=== PATIENT | male | born 1980 | race Caucasian/White ===

== ENCOUNTER 2016-06-21 02:17 | Emergency (ER) | payer OTHER ==
--- NOTE | ~2016-06-21 | CR71 ---
[facility] A Service of [facility] & [facility] RADIOLOGY TEXT RESULTS PATIENT: RILEY ALLEN LOCATION: [facility] : 80 UNIT #: [id number] AGE: [address]: Marco Paz MD SEX: M ORDER DR: [id number] [facility] [address] [place], [place] [address] [id number] MR#: [id number] Acc #: [id number] NAME: RILEY ALLEN : 1980 SEX: M STUDY DATE/TIME: 06/21/2016 0:58 UNIT: [facility] ROOM: STUDY DESCRIPTION: CR Chest Single View Attending Physician: Marco Paz M.D. Ordering Physician: Carol Last M.D. Primary Care Physician: Primary Care Physician No MEDICAL IMAGING REPORT This report is preliminary unless electronic signature is present EXAM AP portable chest date 06/21/2016 at 00:58 HISTORY Left side chest pain and palpitations today. History of smoking. COMPARISON None. FINDINGS A single AP portable view of the chest shows both lungs to be clear. The heart is normal in size. The mediastinal contour is normal. No significant bone abnormalities are seen. IMPRESSION Normal portable chest. Dictated by... Cayla Allen M.D. THIS IS AN ELECTRONICALLY VERIFIED REPORT Cayla Allen M.D. at 06/21/2016 9:58 PM [facility]/jose TD: 06/21/2016 02:14 JOB #: [id number] MEDICAL IMAGING REPORT Page 1 of 1 COPY
--- NOTE | ~2016-06-21 | EKG ---
PATIENT: RILEY ALLEN UNIT #: [id number] Ventricular Rate: 86 BPM Atrial Rate: 86 BPM P-R Interval: 136 ms QRS Duration: 100 ms Q-T Interval: 406 ms QTC Calculation(Bezet): 485 ms P Alpha: 66 degrees Calculated R Alpha: 52 degrees Calculated T Alpha: 70 degrees Diagnosis Line: Normal sinus rhythm Diagnosis Line: Prolonged QT Diagnosis Line: Abnormal ECG Diagnosis Line: No previous ECGs available Diagnosis Line: Confirmed by MEGAN DUKE MD ([id number]) on Diagnosis Line: 06/21/2016 4:36:53 PM INTERPRETING MD: LEILANI GALLOWAY
[2016-06-21 01:10] LABS: POC - CKMB 1.5 ng/mL (0.0-7.9); POC - TROPONIN <0.05 ng/mL (<=0.05)
[2016-06-21 01:26] LABS: BASOPHIL% 0.5 % (0-2.5); EOSINOPHIL# 0.3 X10e3 (0-0.7); EOSINOPHIL% 4.3 % (0.0-7.0); HEMOGLOBIN 14.6 gm/dL (13.0-16.0); LYMPHOCYTE# 2.3 X10e3 (1.0-3.5); LYMPHOCYTE% 33.5 % (17.0-45.0); MEAN CELL VOLUME 84.8 FL (83-96); MEAN CORPUSCULAR HEMOGLOBIN 28.3 PG (28-34); MEAN CORPUSCULAR HGB CONC 33.3 g/dL (30-36); MEAN PLATELET VOLUME 7.5 FL (6.5-11.5); MONOCYTE# 0.6 X10e3 (0-1.0); MONOCYTE% 8.2 % (3.0-12.0); NEUTROPHIL# 3.6 X10e3 (1.5-7.1); NEUTROPHIL% 53.5 % (40-75); PLATELET COUNT 269 X10e3 (140-420); RED BLOOD COUNT 5.18 X10e (3.90-5.60); WHITE BLOOD COUNT 6.8 X10e3 (4.0-10.5)
[2016-06-21 01:30] LABS: DIFF IND NO
[2016-06-21 01:45] LABS: BLOOD UREA NITROGEN 17 mg/dL (9-23); BUN/CREATININE RATIO 18.88; CALCIUM SERUM 8.9 mg/dL (8.4-10.2); CARBON DIOXIDE 27 mmol/L (22-31); CHLORIDE 101 mmol/L (100-111); CREATININE SERUM 0.9 mg/dL (0.6-1.4); GLOM FILT RATE Estimated 109.5 mL/min (>60); GLUCOSE FASTING 154 mg/dL (70-110); SODIUM 137 mmol/L (135-145)
[2016-06-21 01:47] LABS: ALCOHOL BLOOD <5 mg/dL (0); POTASSIUM 2.9 mmol/L (3.5-5.1)
[2016-06-21 03:52] LABS: AMPHETAMINE POS (NEG); BARBITURATES NEG (NEG); BENZODIAZEPINES NEG (NEG); COCAINE NEG (NEG); MARIJUANA NEG (NEG); OPIATES NEG (NEG); TRICYCLIC ANTIDEPRESSANTS NEG (NEG); U METHADONE NEG (NEG)
== END 2016-06-21 07:29 | disposition home or self-care (01) ==
LOC: CED 02:17
PROVIDERS: Student in an Organized Health Care Education/Training Program
DX: E87.6 Hypokalemia (principal); F15.10 Other stimulant abuse, uncomplicated; F41.9 Anxiety disorder, unspecified; F17.200 Nicotine dependence, unspecified, uncomplicated
CPT/HCPCS: 36415; 71010; 80048; 80307; 82553; 84484; 85025; 93005; 96361; 96374; 99284; G0480; J2060

== ENCOUNTER 2016-09-06 18:45 | Inpatient (IN) | payer OTHER ==
--- NOTE | ~2016-09-06 | PN ---
Unit #: [id number] #: [id number] Patient: RILEY ALLEN [id number] [facility] [address] [place] [address] [id number] I MR#: [id number] NAME: RILEY ALLEN ROOM: 16 Age: 36 Sex: M Admission Date: 09/06/2016 : 1980 Attending Physician: Quinton Gilmore M.D. Admitting Physician: Quinton Gilmore M.D. Primary Care Physician: Primary Care Physician Jenny CHAHAL NOTES DATE OF SERVICE: 09/08/2016 DISCUSSION Mr. Santos is a 36-year-old male. The patient seen on 09/08/2016. The patient interviewed, chart reviewed, and obtained information from nursing staff. The patient compliant and cooperative. Reports feeling better. Denied any hallucination, but somewhat guarded, withdrawn, and isolative. REVIEW OF SYSTEMS Complete review of systems unremarkable. MENTAL STATUS EXAMINATION General appearance, the patient dressed casually. Attention span and concentration, fair. Oriented in time, place, and person. Mood and affect, labile. Speech, monotone. Thought process, concrete. The patient denied any thoughts of harming self or others, but somewhat guarded. Recent and remote memory, poor. Insight and judgment, poor. 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 ASSESSMENT AND PLAN Advised to continue with current medication and therapeutic protocol. If needed, consider further adjustment of medication. Dictated by... Jose Ortiz/naida TD: 09/08/2016 17:04 JOB #: [id number] Unit #: [id number] #: [id number] Patient: RILEY ALLEN DUSTY PROGRESS NOTES Page 1 of 1 X Quinton Gilmore MD PROGRESS NOTE
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
--- NOTE | ~2016-09-06 | PN ---
Unit #: [id number] #: [id number] Patient: TOM GONZALEZ [id number] [facility] [address] [place] [address] [id number] I MR#: [id number] NAME: TOM GONZALEZ ROOM: 16 Age: 36 Sex: M Admission Date: 09/06/2016 : 1980 Attending Physician: Quinton Gilmore M.D. Admitting Physician: Quinton Gilmore M.D. Primary Care Physician: Primary Care Physician Jenny CHAHAL NOTES DATE 09/07/2016 DISCUSSION Tom Gonzalez is a 36-year-old male, seen on 09/07/2016. The patient interviewed, chart reviewed, and obtained information from the nursing staff. The patient was compliant and cooperative. Mood sad and dysphoric, flat, withdrawn, disorganized behavior, disorganized thought process, guarded, paranoid, delusions. REVIEW OF SYSTEMS Complete review of systems unremarkable. MENTAL STATUS EXAMINATION General appearance: Patient dressed casually. Attention span and concentration, poor. Orientation in self and place. Mood and affect, labile. Speech, rambling. Thought process, circumstantial, guarded, paranoid, delusional. Recent and remote memory, poor. Insight and judgment, poor. DIAGNOSIS Psychosis, NOS. ASSESSMENT/PLAN Advised to continue with the current medication and therapeutic protocol, and advised to add Cogentin 1 mg twice daily, if needed we will make further adjustment of medication. The patient's labs showed total bilirubin 2.9. CBC unremarkable. Urine drug screen positive for amphetamine. Dictated by... Jose Ortiz/any TD: 09/08/2016 10:36 JOB #: [id number] Unit #: [id number] #: [id number] Patient: TOM GONZALEZ DUSTY PROGRESS NOTES Page 1 of 1 X Quinton Gilmore MD PROGRESS NOTE
--- NOTE | ~2016-09-06 | DS ---
Unit #: [id number] #: [id number] Patient: RILEY ALLEN [id number] [facility] [address] [place] [address] [id number] I MR#: [id number] NAME: RILEY ALLEN ROOM: [facility] Age: 36 Sex: M Admission Date: 09/06/2016 : 1980 Discharge Date: 09/09/2016 Attending Physician: Quinton Gilmore M.D. Primary Care Physician: Primary Care Physician No DISCHARGE SUMMARY REASON FOR ADMISSION Psychosis. DIAGNOSTIC STUDIES LABORATORY RESULTS: Urine drug screen remarkable for amphetamine. HOSPITAL COURSE The patient was admitted to inpatient unit on 09/07/2016 and discharged on 09/09/2016. The patient was treated with group therapy, individual therapy, medication management. The patient was responsive to treatment and showed improvement. The patient's Haldol was discontinued as the patient developed EPS symptom, responsive to Benadryl. Subsequently, the patient was discharged with a plan to follow up in outpatient program. DISCHARGE MEDICATIONS None. DISCHARGE DIAGNOSES Psychiatric: 1. Psychosis, not otherwise specified, F29.0. 2. Rule out schizophrenia, chronic, paranoid type, F20.0. 3. Rule out substance abuse, psychosis, F19.959. 4. Amphetamine use disorder, severe, F15.20. Secondary diagnosis: Deferred. Medical diagnosis: None. Stressors: Psychosocial stressors. DISCHARGE INSTRUCTIONS The patient to follow up in outpatient clinic as per psychologist social. CONDITION ON DISCHARGE The patient was pleasant and cooperative. Denied any thoughts of harming self or others. PROGNOSIS Guarded. DIET AND ACTIVITY As tolerated. Unit #: [id number] #: [id number] Patient: RILEY ALLEN Dictated by... Jose Ortiz/naida TD: 09/09/2016 19:45 JOB #: [id number] DISCHARGE SUMMARY Page 1 of 1 X Quinton Gilmore MD X DISCHARGE SUMMARY
--- NOTE | ~2016-09-06 | HP ---
Unit #: [id number] #: [id number] Patient: TOM ALLEN [id number] [place] [address] [id number] I MR#: [id number] NAME: TOM ALLEN ROOM: 16 Age: 36 Sex: M Admission Date: 09/06/2016 : 1980 Attending Physician: Quinton Gilmore M.D. Admitting Physician: Quinton Gilmore M.D. Primary Care Physician: Primary Care Physician No HISTORY AND PHYSICAL HISTORY OF PRESENT ILLNESS Tom is a 36-year-old male admitted on 09/06/[address] [place] [address] for psychosis. PAST MEDICAL HISTORY None. PAST SURGICAL HISTORY Pelvic fracture requiring surgical repair. ALLERGIES None. SOCIAL HISTORY Smokes 1 pack of cigarettes daily. Denies alcohol use. Does report a history of Suboxone and methamphetamine use. He is currently single and living with his mother. FAMILY HISTORY Noncontributory. REVIEW OF SYSTEMS CONSTITUTIONAL: No fever or chills. HEENT: Denies any sore throat, ear pain or runny nose. CARDIOVASCULAR: Denies chest pain, irregular heart rhythm or palpitations. CHEST: Denies shortness of breath or cough. No hemoptysis. GASTROINTESTINAL: Denies nausea, vomiting, diarrhea or chronic constipation. ENDOCRINE: Denies history of increased thirst or urination. No recent significant weight loss or gain. GENITOURINARY: Denies dysuria, frequency, or hematuria. SKIN: Denies any rashes. HEMATOLOGIC: Denies history of increased bleeding or bruising. MUSCULOSKELETAL: Denies any hot, swollen joints. No generalized muscle pain. NEUROLOGIC: Denies problems with vision or speech. No frequent, severe headaches. No numbness, tingling or weakness in any extremities. Denies loss of bladder or bowel control. CURRENT MEDICATIONS None. PHYSICAL EXAMINATION Unit #: [id number] #: [id number] Patient: TOM ALLEN GENERAL: Alert, oriented, in no acute distress. VITAL SIGNS: Blood pressure 143/99, heart rate 73. HEIGHT: 5 feet 7. WEIGHT: 170 pounds. SKIN: Warm and dry without rash or lesion. HEENT: Normocephalic. TMs not viewed. Oral and nasal passages clear. Conjunctivae clear. PERRLA. EOMs intact. NECK: Supple without lymphadenopathy or thyromegaly. HEART: Regular rate and rhythm without murmur. LUNGS: Clear. ABDOMEN: Soft, nontender, without masses or hepatosplenomegaly. : Not done. EXTREMITIES: No evidence of cyanosis, clubbing or edema. Moves all without focal deficit. NEUROLOGICAL: Grossly within normal limits. Cranial Nerves: II: Visual cuello are intact. III, IV AND : Extraocular movements are intact. Pupils are equal, round and reactive to light. V: Facial sensation is grossly normal. VII: Facial movements and expression are normal. VIII: Auditory acuity grossly intact. IX, X: Uvula is midline. Phonation is normal. XI: Patient shrugs shoulders and turns head normally. XII: Tongue protrudes in the midline. Sensory and Motor Function: Sensory and motor sensation is grossly normal. Motor: moves all extremities well. Coordination: Gait is normal. Deep Tendon Reflexes: Intact. IMPRESSION Psychiatric admission. RECOMMENDATIONS PSYCHIATRIC: Per psychiatrist. MEDICAL: No contraindication to participate in facility's activities. MEDICAL PROGNOSIS Good. MEDICAL CONDITION Stable. Dictated by... Tony Guillaume/mckenzie TD: 09/07/2016 21:30 JOB #: [id number] Unit #: [id number] #: [id number] Patient: TOM ALLEN HISTORY AND PHYSICAL Page 1 of 1 X NICOLAS SINGH APRN HISTORY AND PHYSICAL
[2016-09-07 09:54] LABS: BASOPHIL% 0.6 % (0-2.5); EOSINOPHIL# 0.2 X10e3 (0-0.7); EOSINOPHIL% 2.2 % (0.0-7.0); HEMATOCRIT 46.6 % (38.0-50.0); HEMOGLOBIN 15.7 gm/dL (13.0-16.0); LYMPHOCYTE# 1.4 X10e3 (1.0-3.5); MEAN CELL VOLUME 83.7 FL (83-96); MEAN CORPUSCULAR HEMOGLOBIN 28.3 PG (28-34); MEAN CORPUSCULAR HGB CONC 33.8 g/dL (30-36); MEAN PLATELET VOLUME 7.6 FL (6.5-11.5); MONOCYTE# 0.7 X10e3 (0-1.0); MONOCYTE% 8.8 % (3.0-12.0); NEUTROPHIL# 5.2 X10e3 (1.5-7.1); NEUTROPHIL% 69.4 % (40-75); PLATELET COUNT 259 X10e3 (140-420); RED BLOOD COUNT 5.57 X10e (3.90-5.60); WHITE BLOOD COUNT 7.5 X10e3 (4.0-10.5)
[2016-09-07 09:58] LABS: BILIRUBIN,TOTAL 2.9 mg/dL (0.2-2.0); BUN/CREATININE RATIO 18.75; CALCIUM SERUM 9.4 mg/dL (8.4-10.2); CREATININE SERUM 0.8 mg/dL (0.6-1.4); POTASSIUM 3.9 mmol/L (3.5-5.1); PROTEIN TOTAL SERUM 6.2 g/dL (6.0-8.3)
[2016-09-07 10:17] LABS: DIFF IND NO
== END 2016-09-09 10:15 | DRG 885 ==
LOC: P1S 20:59
PROVIDERS: Psychiatry & Neurology Psychiatry
DX: F29 Unspecified psychosis not due to a substance or known physiological condition (principal); F20.0 Paranoid schizophrenia; F11.10 Opioid abuse, uncomplicated; F15.10 Other stimulant abuse, uncomplicated; F17.210 Nicotine dependence, cigarettes, uncomplicated; F19.959 Other psychoactive substance use, unspecified with psychoactive substance-induced psychotic disorder, unspecified
CPT/HCPCS: 80053; 85025; J1200; J1630

== ENCOUNTER 2016-09-29 18:57 | Emergency (ER) | payer OTHER ==
[~2016-09-29] VITALS: Ht 170.2 cm; Wt 81.6 kg
== END 2016-09-29 21:45 | disposition left against medical advice (07) ==
LOC: CED 18:57
DX: Z53.21 Procedure and treatment not carried out due to patient leaving prior to being seen by health care provider (principal)

== ENCOUNTER 2016-10-05 19:00 | Inpatient (IN) | payer OTHER ==
[~2016-10-05] VITALS: Ht 170.2 cm; Wt 81.6 kg
--- NOTE | ~2016-10-05 | PN ---
Unit #: [id number] #: [id number] Patient: RILEY ALLEN [id number] [facility] [address] [place] [address] [id number] I MR#: [id number] NAME: RILEY ALLEN ROOM: P201 Age: 36 Sex: M Admission Date: 10/05/2016 : 1980 Attending Physician: Quinton Gilmore M.D. Admitting Physician: Quinton Gilmore M.D. Primary Care Physician: Generic Doctor Not In System [facility] PROGRESS NOTES DATE OF SERVICE 10/07/2016 DISCUSSION Mr. Santos is a 36-year-old male seen on 10/07/2016. Patient interviewed, chart reviewed. Obtained information from nursing staff. Patient withdrawn, isolative, guarded, paranoid, isolative. Patient tolerating medication fairly well. Vital signs 98.2, 74, 129/63. Complete review of systems unremarkable. MENTAL STATUS EXAMINATION General appearance, patient dressed casually. Attention span and concentration fair. Oriented to place and person. Mood and affect labile. Speech monotone. Thought process concrete somewhat guarded, paranoid. Recent and remote memory poor. Insight and judgement poor. DIAGNOSES 1. Amphetamine use disorder severe. 2. Psychosis NOS. ASSESSMENT/PLAN Advise to continue with current medication and therapeutic protocol. If needed consider further adjustment of medication. Dictated by... Jose Ortiz/felix TD: 10/10/2016 02:39 JOB #: [id number] [facility] PROGRESS NOTES Page 1 of 1 X Quinton Gilmore MD X PROGRESS NOTE
--- NOTE | ~2016-10-05 | DS ---
Unit #: [id number] #: [id number] Patient: RILEY ALLEN [id number] [facility] [address] [place] [address] [id number] I MR#: [id number] NAME: RILEY ALLEN ROOM: P20 Age: 36 Sex: M Admission Date: 10/05/2016 : 1980 Discharge Date: 10/10/2016 Attending Physician: Quinton Gilmore M.D. Primary Care Physician: Generic Doctor Not In System DISCHARGE SUMMARY REASON FOR ADMISSION Psychosis. DIAGNOSTIC STUDIES LABORATORY RESULTS: Urine drug screen positive for amphetamine. HOSPITAL COURSE The patient was admitted to the inpatient unit on 10/05/2016 and discharged on 10/10/2016. The patient was treated with group therapy, individual therapy, and medication management. The patient was responsive to treatment and showed improvement. Subsequently, the patient was discharged with a plan to follow up in outpatient program. DISCHARGE MEDICATIONS Zoloft 50 mg daily for depression and Zyprexa 10 mg daily for psychosis. DISCHARGE DIAGNOSES Psychiatric: Psychosis, not otherwise specified, F29.0; amphetamine use disorder, severe, F15.20; rule out schizophrenia, chronic paranoid type, F20.0. Secondary diagnosis: Deferred. Medical diagnosis: None. Stressors: Psychosocial stressors. DISCHARGE INSTRUCTIONS The patient to follow up in outpatient clinic as per social worker health services. CONDITION ON DISCHARGE The patient was pleasant and cooperative. Denied any psychotic symptom or any suicidal ideation. PROGNOSIS Guarded. DIET AND ACTIVITY As tolerated. Dictated by... uQinton Gilmore M.D. Unit #: [id number] #: [id number] Patient: RILEY ALLEN SZC/modl TD: 10/10/2016 14:15 JOB #: [id number] DISCHARGE SUMMARY Page 1 of 1 X Quinton Gilmore MD X DISCHARGE SUMMARY
--- NOTE | ~2016-10-05 | PN ---
Unit #: [id number] #: [id number] Patient: RILEY ALLEN [id number] [facility] [address] [place] [address] [id number] I MR#: [id number] NAME: RILEY ALLEN ROOM: P201 Age: 36 Sex: M Admission Date: 10/05/2016 : 1980 Attending Physician: Quinton Gilmore M.D. Admitting Physician: Quinton Gilmore M.D. Primary Care Physician: Generic Doctor Not In System [facility] PROGRESS NOTES DATE OF SERVICE: 10/09/2016 DISCUSSION Mr. Santos is a 36-year-old male, seen on 10/09/2016. The patient interviewed, chart reviewed, and obtained information from nursing staff. The patient was compliant and cooperative. Mood was labile. The patient was able to maintain safe behavior. Vital signs, stable; temperature 98.5, heart rate 54, blood pressure 110/57. REVIEW OF SYSTEMS Complete review of systems unremarkable. MENTAL STATUS EXAMINATION General appearance, the patient dressed casually. Attention span and concentration, fair. Oriented in time, place, and person. Mood and affect, labile. Speech, monotone. Thought process, concrete. The patient denied any thoughts of harming self or others. Recent and remote memory, poor. Insight and judgment, poor. DIAGNOSES 1. Amphetamine use disorder, severe. 2. Psychosis, not otherwise specified. ASSESSMENT/PLAN Advised to continue with current medication and therapeutic protocol. If needed, consider further adjustment of medication. Dictated by... Jose Ortiz/naida TD: 10/10/2016 22:51 JOB #: [id number] Unit #: [id number] #: [id number] Patient: RILEY ALLEN [facility] PROGRESS NOTES Page 1 of 1 X Quinton Gilmore MD PROGRESS NOTE
--- NOTE | ~2016-10-05 | PN ---
Unit #: [id number] #: [id number] Patient: RILEY ALLEN [id number] [facility] [address] [place] [address] [id number] MR#: [id number] NAME: RILEY ALLEN ROOM: P201 Age: 36 Sex: M Admission Date: 10/05/2016 : 1980 Attending Physician: Quinton Gilmore M.D. Admitting Physician: Quinton Gilmore M.D. Primary Care Physician: Generic Doctor Not In System [facility] PROGRESS NOTES DATE OF SERVICE: 10/08/2016 DISCUSSION Mr. Santos is a 36-year-old male, seen on 10/08/2016. The patient interviewed, chart reviewed, and obtained information from nursing staff. The patient reports feeling better, decrease in paranoia, voices medication is helping him. No side effects from medication. Vital signs; temperature 98.7, pulse 57, and blood pressure 102/65. Complete review of systems unremarkable. MENTAL STATUS EXAMINATION General appearance, the patient dressed casually. Attention span and concentration, fair. Oriented in time, place, and person. Mood and affect, labile. Speech, monotone. Thought process, concrete. The patient denied any thoughts of harm self or others. Recent and remote memory, poor. Insight and judgment, poor. DIAGNOSIS Amphetamine use disorder, severe. ASSESSMENT AND PLAN Advised to continue with current medication and therapeutic protocol. If needed, consider further adjustment of medication. Dictated by... Jose Ortiz/naida TD: 10/08/2016 16:03 JOB #: [id number] Unit #: [id number] #: [id number] Patient: RILEY ALLEN [facility] PROGRESS NOTES Page 1 of 1 X Quinton Gilmore MD X PROGRESS NOTE
--- NOTE | ~2016-10-05 | HP ---
Unit #: [id number] #: [id number] Patient: RILEY ALLEN [id number] [facility] [address] [place] [address] [id number] MR#: [id number] NAME: RILEY ALLEN ROOM: P201 Age: 36 Sex: M Admission Date: 10/05/2016 : 1980 Attending Physician: Quinton Gilmore M.D. Admitting Physician: Quinton Gilmore M.D. Primary Care Physician: Generic Doctor Not In System HISTORY AND PHYSICAL HISTORY OF PRESENT ILLNESS The patient is a 36-year-old man who [facility], paranoia, and IV drug use. PAST MEDICAL HISTORY Previous admission for the same. PAST SURGICAL HISTORY Pelvic fracture requiring surgical repair. ALLERGIES No known allergies. HOME MEDICATIONS 1. Sertraline 15 mg p.o. in the morning. 2. Olanzapine 10 mg p.o. at night. 3. Suboxone 8/2 mg sublingual 2 times p.o. daily. FAMILY HISTORY Medically noncontributory. SOCIAL HISTORY Tobaccoism. Methamphetamine and Suboxone use. REVIEW OF SYSTEMS CONSTITUTIONAL: Denies fever or chills. HEENT: Denies sore throat, ear pain, or runny nose. CARDIOVASCULAR: Denies chest pain, irregular heart rhythm, or palpitations. CHEST: Denies shortness of breath or cough. No hemoptysis. GI: Denies nausea, vomiting, diarrhea, or chronic constipation. ENDOCRINE: Denies increased thirst or urination. Denies recent weight loss or weight gain. : Denies dysuria, frequency, or hematuria. SKIN: Denies any rashes. HEMATOLOGIC: Denies any increased bleeding or bruising. MUSCULOSKELETAL: Denies any hot, swollen joints. No generalized pain. NEUROLOGIC: Denies problems with speech or vision, numbness, or tingling. Denies loss of bowel or bladder issues. PHYSICAL EXAMINATION GENERAL: The patient is awake, in no acute distress. VITAL SIGNS: Temperature 97.8, heart rate 76, respirations 20, blood Unit #: [id number] #: [id number] Patient: RILEY ALLEN pressure 122/88. He is 5 feet 7; 180 pounds. HEENT: Head is atraumatic, normocephalic. Pupils are equal, round, and reactive. Extraocular movements are intact. No discharge from ears or nose. NECK: Supple. Trachea is midline. HEART: Regular rate and rhythm. LUNGS: Clear. ABDOMEN: Soft, nontender, nondistended. : Not done. SKIN: Warm, dry with no unusual rashes or lesions. EXTREMITIES: No clubbing, edema, or cyanosis. NEUROLOGIC: Cranial nerves II through XII are intact. No focal deficits. Sensory or motor function: Grossly normal. Moves all extremities well. Coordination and gait: Normal. Deep tendon reflexes intact. IMPRESSION Psychiatric admission. RECOMMENDATIONS PSYCHIATRIC: Per psychiatrist. MEDICAL: I see no contraindication to participating in this facility activities. MEDICAL PROGNOSIS Fair. MEDICAL CONDITION Stable. Dictated by... Amy Foley A.P.R.N. for Dmitriy Rolon M.D. AM/earl TD: 10/06/2016 09:26 JOB #: [id number] HISTORY AND PHYSICAL Page 1 of 1 X Amy Foley APRN X HISTORY AND PHYSICAL
--- NOTE | ~2016-10-05 | PA ---
Unit #: [id number] #: [id number] Patient: RILEY ALLEN [id number] [facility] [address] [place] [address] [id number] I MR#: [id number] NAME: RILEY ALLEN ROOM: P201 Age: 36 Sex: M Admission Date: 10/05/2016 : 1980 Date of Assessment: Attending Physician: Quinton Gilmore M.D. Admitting Physician: Quinton Gilmore M.D. Primary Care Physician: Generic Doctor Not In System PSYCHIATRIC ASSESSMENT INFORMANT The patient reliability, fair; chart reliability, good. CHIEF COMPLAINT Methamphetamine abuse and paranoia. HISTORY OF PRESENT ILLNESS Mr. Santos is a 36-year-old male. The patient admitted with the above mentioned complaint. The patient reports feeling paranoid, reported using meth 3.5 g IV daily, last use one day ago. The patient reported feeling paranoid and hearing things, seeing things. The patient feels people are there to kill him. The patient denied any homicidal ideation, but guarded, paranoid, attending to internal stimuli. Mood is sad and dysphoric. Flat affect. The patient reported tobacco use, age of onset 16; alcohol, age of onset 17; and crack cocaine, age of onset 11; opioid, age of onset 30; amphetamine, age of onset 17. Longest period of sobriety 8 months. Last period of sobriety is 2014. The patient reported history of blackouts, history of IV drug use. No history of any HIV, hepatitis withdrawal symptom. Needing inpatient admission at this time for psychiatric stabilization. PAST PSYCHIATRIC HISTORY Remarkable for history of previous treatment. Last admitted on 09/06/2016. FAMILY HISTORY AND SOCIAL HISTORY The patient has a good support system from mother. No history of abuse. No legal charges. Recently released from long-term. History of substance abuse in father. No history of any other psychiatric illness in the family. MEDICAL HISTORY Unremarkable for any chronic medical illness. Musculoskeletal; muscle strength and tone, no atrophy or abnormal movement. Gait normal. MEDICATION HISTORY The patient reported that he was on Zoloft and Risperdal. ALLERGIES No known drug allergies. SUBSTANCE ABUSE HISTORY History of tobacco use, marijuana abuse. Please see above for detail. Unit #: [id number] #: [id number] Patient: RILEY ALLEN REVIEW OF SYSTEMS HEENT: Eyes, clear. Ears, nose, mouth, and throat; clear. CARDIOVASCULAR: Unremarkable. RESPIRATORY: Unremarkable. GI: Unremarkable. : Unremarkable. SKIN: Unremarkable. LYMPH NODE: Unremarkable. NEUROLOGIC: Unremarkable. ENDOCRINE: Unremarkable. HEMATOLOGIC: Unremarkable. ALLERGIC/IMMUNOLOGIC: Unremarkable. MUSCULOSKELETAL: Muscle strength and tone, no atrophy or abnormal movement. Gait normal. MENTAL STATUS EXAMINATION CONSTITUTIONAL: Measurement of vital signs; temperature 98.3, pulse 86, respirations 20, oxygen saturation 99%, blood pressure 123/74, height 5 feet 7 inches, and weight 180 pounds. GENERAL APPEARANCE: The patient dressed casually. No facial deformity noted. MUSCULOSKELETAL: Please see above. PSYCHIATRIC EXAMINATION Description of speech, disorganized thought process, guarded paranoid, attending to internal stimuli, confused, delusional, paranoid, history of substance abuse. Please see details above. History of the patient's judgment, concerning everyday activity, poor. Social situation, poor. Concerning psychiatric condition, poor. Complete mental status examination; oriented in time, place, and person. Recent and remote memory, poor. Language, fair. Fund of knowledge, poor. Vocabulary, poor. Mood and affect, sad and dysphoric. Insight and judgment, poor. ASSETS AND LIABILITIES Assets; the patient is articulate, able to take care of his ADL. Liability; history of substance abuse. ADMITTING DIAGNOSES Psychiatric: Psychosis, not otherwise specified, F29.0; amphetamine use disorder, severe, F15.20; rule out schizophrenia, chronic, paranoid type. Secondary diagnosis: Deferred. Medical diagnosis: None. Stressors: Psychosocial stressors. PSYCHIATRIC PLAN AND TREATMENT GOAL AND DISCHARGE PLAN 1. Advised to admit the patient on the inpatient unit. Provide safe, supportive, and structured environment. 2. Ordered labs; CBC, CMP, UA, and UDS. 3. Precaution for psychosis, aggression, and self-harm. 4. Advised to start the patient on Zyprexa 10 mg b.i.d. Continue with the patient to attend all the programming group therapy, individual therapy, and chemical dependency group. 5. Treatment goal; to attain euthymic mood, gain insight into his problem. Unit #: [id number] #: [id number] Patient: RILEY ALLEN 6. Discharge plan; plan to stabilize the patient and consider followup on outpatient program. ESTIMATED LENGTH OF STAY 5 days. Dictated by... Jose Ortiz/naida TD: 10/06/2016 19:59 JOB #: [id number] PSYCHIATRIC ASSESSMENT Page 1 of 1 X Quinton Gilmore MD X PSYCHIATRIC ASSESSMENT
--- NOTE | ~2016-10-05 | PN ---
Unit #: [id number] #: [id number] Patient: TOM ALLEN [id number] [facility] [address] [place] [address] [id number] I MR#: [id number] NAME: TOM ALLEN ROOM: P201 Age: 36 Sex: M Admission Date: 10/05/2016 : 1980 Attending Physician: Quinton Gilmore M.D. Admitting Physician: Quinton Gilmore M.D. Primary Care Physician: Generic Doctor Not In System [facility] PROGRESS NOTES DATE OF SERVICE 10/06/2016 DISCUSSION Tom is a 36-year-old male seen on 10/06/2016. Patient interviewed, chart reviewed. Obtained information from nursing staff. Patient continues to be guarded, withdrawn, isolative, paranoid, disorganized behavior, thought process. Complete review of systems unremarkable. MENTAL STATUS EXAMINATION General appearance, patient dressed casually. Attention span and concentration poor. Orientation to self. Mood and affect labile. Speech disorganized. Thought process paranoid, attending to internal stimuli. Recent and remote memory poor. Insight and judgement poor. DIAGNOSES 1. Amphetamine use disorder, severe. 2. Psychosis NOS. ASSESSMENT/PLAN Advise to continue with current medication. Patient is currently on Zoloft 50 mg daily, Zyprexa 10 mg daily. If needed consider further adjustment of medication. Dictated by... Jose Ortiz/felix TD: 10/07/2016 02:46 JOB #: [id number] [facility] PROGRESS NOTES Page 1 of 1 X Quinton Gilmore MD X PROGRESS NOTE
[2016-10-06 09:47] LABS: BASOPHIL# 0.1 X10e3 (0-0.3); BASOPHIL% 0.9 % (0-2.5); EOSINOPHIL# 0.3 X10e3 (0-0.7); HEMATOCRIT 48.1 % (38.0-50.0); HEMOGLOBIN 16.1 gm/dL (13.0-16.0); LYMPHOCYTE# 1.6 X10e3 (1.0-3.5); LYMPHOCYTE% 24.7 % (17.0-45.0); MEAN CELL VOLUME 85.6 FL (83-96); MEAN CORPUSCULAR HEMOGLOBIN 28.7 PG (28-34); MEAN CORPUSCULAR HGB CONC 33.5 g/dL (30-36); MEAN PLATELET VOLUME 7.2 FL (6.5-11.5); MONOCYTE# 0.3 X10e3 (0-1.0); MONOCYTE% 4.2 % (3.0-12.0); NEUTROPHIL# 4.3 X10e3 (1.5-7.1); NEUTROPHIL% 66.2 % (40-75); PLATELET COUNT 343 X10e3 (140-420); RED BLOOD COUNT 5.62 X10e (3.90-5.60); RED CELL DISTRIBUTION WIDTH 13.9 % (11.0-15.5); WHITE BLOOD COUNT 6.6 X10e3 (4.0-10.5)
[2016-10-06 09:53] LABS: DIFF IND NO
[2016-10-06 10:06] LABS: ALBUMIN SERUM 3.5 g/dL (3.5-5.0); BILIRUBIN,TOTAL 1.2 mg/dL (0.2-2.0); BUN/CREATININE RATIO 15.45; CALCIUM SERUM 9.2 mg/dL (8.4-10.2); CREATININE SERUM 1.1 mg/dL (0.6-1.4); GLOM FILT RATE Estimated 85.9 mL/min (>60); POTASSIUM 4.7 mmol/L (3.5-5.1); PROTEIN TOTAL SERUM 6.1 g/dL (6.0-8.3)
[2016-10-07 09:47] LABS: URINE APPEARANCE CLEAR; URINE BILIRUBIN NEG (NEG); URINE BLOOD NEG (NEG); URINE COLOR DK YELLOW; URINE GLUCOSE NEG (NEG); URINE KETONE TRACE (NEG); URINE LEUKOCYTE ESTERASE NEG (NEG); URINE NITRATE NEG (NEG); URINE PH 6.5 (5-8); URINE PROTEIN NEG (NEG); URINE SPECIFIC GRAVITY 1.031 (1.003-1.035)
[2016-10-07 10:16] LABS: AMPHETAMINE POS (NEG); BARBITURATES NEG (NEG); BENZODIAZEPINES NEG (NEG); COCAINE NEG (NEG); MARIJUANA NEG (NEG); OPIATES NEG (NEG); TRICYCLIC ANTIDEPRESSANTS NEG (NEG); U METHADONE NEG (NEG)
== END 2016-10-10 16:56 | disposition home or self-care (01) | DRG 885 ==
LOC: P2S 22:50
PROVIDERS: Psychiatry & Neurology Psychiatry
DX: F29 Unspecified psychosis not due to a substance or known physiological condition (principal); F15.20 Other stimulant dependence, uncomplicated; F20.0 Paranoid schizophrenia; F17.200 Nicotine dependence, unspecified, uncomplicated
CPT/HCPCS: 80053; 80307; 81003; 85025

== ENCOUNTER 2016-10-18 20:16 | Emergency (ER) | payer OTHER ==
[~2016-10-18] VITALS: Ht 170.2 cm; Wt 81.6 kg
== END 2016-10-18 23:43 | disposition home or self-care (01) ==
LOC: CFTX 20:16 → CED 20:16 → CFTX 23:13
DX: S05.02XA Injury of conjunctiva and corneal abrasion without foreign body, left eye, initial encounter (principal); F17.210 Nicotine dependence, cigarettes, uncomplicated; Z23 Encounter for immunization; W22.8XXA Striking against or struck by other objects, initial encounter
CPT/HCPCS: 90471; 90715; 99283

== ENCOUNTER 2016-10-24 05:14 | Emergency (ER) | payer OTHER ==
[~2016-10-24] VITALS: Ht 170.2 cm; Wt 81.6 kg
--- NOTE | ~2016-10-24 | CR72 ---
[facility] A Service of [facility] & [facility] RADIOLOGY TEXT RESULTS PATIENT: RILEY ALLEN LOCATION: [facility] : [birth year] UNIT #: [id number] AGE: [address]: Marco Paz MD SEX: M ORDER DR: [id number] [facility] [address] [place], [place] [address] [id number] E MR#: [id number] Acc #: [id number] NAME: RILEY ALLEN : 1980 SEX: M STUDY DATE/TIME: 10/24/2016 6:30 UNIT: [facility] ROOM: STUDY DESCRIPTION: CR Chest Single View Portable Attending Physician: Marco Paz M.D. Ordering Physician: Marco Paz M.D. Primary Care Physician: Primary Care Physician No MEDICAL IMAGING REPORT This report is preliminary unless electronic signature is present EXAM Portable chest 10/24/2016 HISTORY Shortness of breath and lower extremity edema for 5 days. Smoking history. FINDINGS A single AP portable view of the chest shows both lungs to be clear. The heart is normal in size. The mediastinal contour is normal. No significant bone abnormalities are seen. IMPRESSION Normal portable chest. Dictated by... Jeff Wheeler M.D. THIS IS AN ELECTRONICALLY VERIFIED REPORT Jeff Wheeler M.D. at 10/25/2016 10:33 AM SIENNA/alfredo TD: 10/24/2016 09:06 JOB #: [id number] MEDICAL IMAGING REPORT Page 1 of 1 COPY
[2016-10-24 06:34] LABS: BASOPHIL% 0.6 % (0-2.5); EOSINOPHIL# 0.4 X10e3 (0-0.7); EOSINOPHIL% 4.7 % (0.0-7.0); HEMOGLOBIN 13.3 gm/dL (13.0-16.0); LYMPHOCYTE# 1.6 X10e3 (1.0-3.5); LYMPHOCYTE% 20.7 % (17.0-45.0); MEAN CELL VOLUME 83.9 FL (83-96); MEAN CORPUSCULAR HEMOGLOBIN 28.7 PG (28-34); MEAN CORPUSCULAR HGB CONC 34.2 g/dL (30-36); MONOCYTE# 0.7 X10e3 (0-1.0); MONOCYTE% 9.6 % (3.0-12.0); NEUTROPHIL# 4.9 X10e3 (1.5-7.1); NEUTROPHIL% 64.4 % (40-75); PLATELET COUNT 302 X10e3 (140-420); RED BLOOD COUNT 4.65 X10e (3.90-5.60); RED CELL DISTRIBUTION WIDTH 13.1 % (11.0-15.5); WHITE BLOOD COUNT 7.7 X10e3 (4.0-10.5)
[2016-10-24 06:35] LABS: DIFF IND NO
[2016-10-24 06:57] LABS: ALBUMIN SERUM 3.5 g/dL (3.5-5.0); BILIRUBIN, DIRECT 0.2 mg/dL (0.0-0.2); BILIRUBIN,INDIRECT 1.2 mg/dL (0.0-0.9); BILIRUBIN,TOTAL 1.4 mg/dL (0.2-2.0); GLOM FILT RATE Estimated 96.4 mL/min (>60); POTASSIUM 3.6 mmol/L (3.5-5.1); PROTEIN TOTAL SERUM 6.3 g/dL (6.0-8.3)
== END 2016-10-24 07:12 | disposition home or self-care (01) ==
LOC: CED 05:14
PROVIDERS: Emergency Medicine
DX: R60.0 Localized edema (principal); F15.10 Other stimulant abuse, uncomplicated; F31.9 Bipolar disorder, unspecified; F17.200 Nicotine dependence, unspecified, uncomplicated
CPT/HCPCS: 36415; 71010; 80048; 80076; 85025; 99285